=== PATIENT | female | born 1970 | race American Indian/Alaskan Native ===

== ENCOUNTER 2016-09-22 11:16 | Inpatient (IN) | payer OTHER ==
[2016-09-22 12:04] LABS: Hematocrit 39.5 % (30.3-42.9); Hemoglobin 12.9 gm/dl (10.1-14.3); Mean Corpuscular HGB Conc 33 % (30-34); Mean Corpuscular Hemoglobin 27 pg (28-32); Mean Corpuscular Volume 82 fl (79-97); Platelet Count 298 K/mm3 (140-440); Red Cell Distribution Width 15.1 % (13.2-15.2)
[2016-09-22 12:13] LABS: INR 0.95 (0.87-1.13)
[2016-09-22 12:14] LABS: Partial Thromboplastin Time 23.9 Sec. (24.2-36.6)
[2016-09-22 12:15] LABS: Albumin 3.7 g/dL (3.9-5); Albumin/Globulin Ratio 1.2 %; BUN/Creatinine Ratio 18.12; Bilirubin,Total 0.2 mg/dL (0.1-1.2); Chloride 104.9 mmol/L (98-107); Potassium 4.5 mmol/L (3.6-5.0); Total Protein 6.8 g/dL (6.3-8.2)
--- NOTE | 2016-09-22 12:29 | XRay Report ---
ROUTINE CHEST, TWO VIEWS: HISTORY: chest pain. Patchy bilateral lower lobe infiltrates and bronchiectasis appear stable since 08/23/16. Heart size is normal. No pleural effusion or pneumothorax. There is however pneumomediastinum which extends into the lower neck which is a new finding since 08/23/16. IMPRESSION: Pneumomediastinum. Prominent lower lobe markings which appear to be chronic.
--- NOTE | 2016-09-22 12:44 | Emergency Department Report ---
HPI - General Chief Complaint: Dyspnea/Respdistress Time Seen by Provider: 09/22/16 12:21 - HPI HPI: This is a 45-year-old Afro-Syrian female presents to the emergency department from home with complaint of some shortness of breath after being bilateral lung biopsies done last Friday. The patient was recently diagnosed with interstitial lung disease and pulmonary fibrosis secondary to her rheumatoid arthritis. The lung biopsies were done to allegedly rule out malignancy but also look for diagnosis of her worsening lung status. She followed up with Dr. Ng on Friday, 2 days ago, and let Dr. Ng know that she was having some air underneath the skin to the chest and lower portion of the neck. She was told that if the air continues to go up into the neck or any worsening of her symptoms that she should go to the emergency department. The patient says that she is having "rice crispy" crunching to her chest and neck and came in for further evaluation. She also has a past medical history of hypertension and has some renal insufficiency secondary to her rheumatoid arthritis. 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 She denies any tobacco abuse. No recent travel or sick contacts at home. ED Past Medical Hx - Past Medical History Hx Hypertension: Yes Hx Congestive Heart Failure: No Hx Diabetes: No Hx Arthritis: Yes Hx Asthma: Yes Hx COPD: No - Social History Smoking Status: Never Smoker Substance Use Type: None - Medications Home Medications: Home Medications Medication Instructions Recorded Confirmed Last Taken Type Albuterol Sulfate [Albuterol 0.63% 0.63 mg IH BID 08/24/16 08/24/16 08/23/16 History NEBS] Etanercept [Enbrel] 50 mg SQ QWEEK 08/24/16 08/24/16 08/21/16 History Ibuprofen [Motrin 800 MG tab] 1,600 mg PO Q12HR 08/24/16 08/24/16 08/23/16 History Aspirin [Aspirin TAB] 325 mg PO QDAY #30 tablet 08/28/16 Unknown Rx Azithromycin [Zithromax TAB] 500 mg PO QDAY #30 tablet 08/28/16 Unknown Rx Azithromycin [Zithromax TAB] 500 mg PO QDAY #7 tablet 08/28/16 Unknown Rx Budesonide [Pulmicort Respules] 0.5 mg IH Q12HRT #30 nebu 08/28/16 Unknown Rx Cefuroxime Axetil [Ceftin] 500 mg PO Q12H #20 tablet 08/28/16 Unknown Rx Ferrous Sulfate [Feosol 325 MG tab] 325 mg PO QDAY #30 tablet 08/28/16 Unknown Rx Fluticasone/Salmeterol [Advair 2 puff INNOSTRIL BID #30 blst.w.dev 08/28/16 Unknown Rx 250-50 Diskus] Folic Acid 1 mg PO QDAY #30 tablet 08/28/16 Unknown Rx Ibuprofen [Motrin 800 MG tab] 800 mg PO Q8H PRN #20 tablet 08/28/16 Unknown Rx Lisinopril [Zestril TAB] 10 mg PO QDAY #30 tablet 08/28/16 Unknown Rx [place]-3/Dha/Epa/Fish Oil [Fish Oil 2 each PO DAILY #30 capsule. 08/28/16 Unknown Rx [place]-3 EC 1,200 mg] Simvastatin [Zocor TAB] 20 mg PO QHS #30 tablet 08/28/16 Unknown Rx guaiFENesin DM [Robitussin Dm] 10 ml PO Q6H PRN #30 oral.liqd 08/28/16 Unknown Rx ED Review of Systems ROS: Stated complaint: SOB Other details as noted in HPI Comment: All other systems reviewed and negative Constitutional: denies: chills, fever Eyes: denies: eye pain, eye discharge, vision change ENT: denies: ear pain, throat pain Respiratory: cough, shortness of breath Cardiovascular: denies: palpitations, edema Gastrointestinal: denies: abdominal pain, nausea, diarrhea Genitourinary: denies: urgency, dysuria, discharge Musculoskeletal: denies: back pain, joint swelling, arthralgia Skin: denies: rash, lesions Neurological: denies: headache, weakness, paresthesias Physical Exam - Physical Exam Vital Signs: Vital Signs 09/22/16 11:22 Temperature 98.7 F Pulse Rate 116 H Respiratory 22 Rate Blood Pressure 136/78 O2 Sat by Pulse 98 Oximetry Physical Exam: GENERAL: The patient is well-developed well-nourished. HEENT: Normocephalic. Atraumatic. Extraocular motions are intact. Patient has moist mucous membranes. Pupils equal reactive to light bilaterally. NECK: Supple. Trachea is midline. There is crepitus that is palpable to the bilateral anterior and lateral neck. CHEST/LUNGS: Mild wheezing throughout the chest. There is some tachypnea but no accessory muscle use. There is no respiratory distress noted. HEART/CARDIOVASCULAR: Regular. There is mild tachycardia. There is no gallop rub or murmur. ABDOMEN: Abdomen is soft, nontender. Patient has normal bowel sounds. There is no abdominal distention. SKIN: There is palpable crepitus to the inferior half of the anterior and bilateral neck as well as the upper portion of the sternum/chest. NEURO: The patient is awake, alert, and oriented. The patient is cooperative. The patient has no focal neurologic deficits. The patient has normal speech. MUSCULOSKELETAL: There is no tenderness or deformity. There is no limitation range of motion. There is no evidence of acute injury. ED Course Vital Signs 09/22/16 11:22 Temperature 98.7 F Pulse Rate 116 H Respiratory 22 Rate Blood Pressure 136/78 O2 Sat by Pulse 98 Oximetry ED Medical Decision Making - Lab Data Result diagrams: 09/22/16 11:40 09/22/16 11:40 - Radiology Data Radiology results: report reviewed, image reviewed interpreted by me: Chest x-ray shows pneumomediastinum and interstitial lung changes. No obvious pneumonia. No pleural effusion. No pneumothorax seen. CT of the chest without contrast shows no signs of pneumothorax. There is a pneumomediastinum and some interstitial changes to the inferior basilar lungs. - Medical Decision Making 45-year-old female presents with progressively worsening crepitus and subcutaneous emphysema to the chest and neck after having bilateral lung biopsies done last Friday. No pneumothorax and this was reconfirmed on CT of the chest. Spoke with the pulmonary service to recommends admission and 4 L nasal cannula supplemental oxygen. Patient accepted for admission by the hospitalist, Dr Nayg. - Differential Diagnosis pneumomediastinum, pneumothorax, COPD, pneumonia Critical Care Time: No Critical care attestation.: If time is entered above; I have spent that time in minutes in the direct care of this critically ill patient, excluding procedure time. ED Disposition Clinical Impression: Shortness of breath, Pneumomediastinum Subcutaneous emphysema Qualifiers: Encounter type: initial encounter Qualified Code(s): T79.7XXA - Traumatic subcutaneous emphysema, initial encounter Disposition: OP ADMIT IP TO THIS HOSP Is pt being admited?: Yes Condition: Stable Referrals: PRIMARY CARE,MD [Primary Care Provider] - 3-5 Days Time of Disposition: 14:17
--- NOTE | 2016-09-22 13:19 | Cat Scan Report ---
CT CHEST WITHOUT CONTRAST: HISTORY: Shortness of breath. TECHNIQUE: Helical CT with sagittal and coronal reformatted images. FINDINGS: Compared to view chest x-ray performed earlier today. CT confirms extensive pneumomediastinum and subcutaneous emphysema in the lower neck. The etiology of this air is unclear on noncontrast CT. No obvious esophageal or tracheal perforation. Heart size is normal. No pericardial effusion. The mediastinal vessels are grossly normal. There is moderate cylindrical bronchiectasis in both lower lobes with poor aeration of the lower lobes. The upper lung zones are relatively clear. There is no evidence for consolidation, large pleural effusion or pneumothorax. The bony structures are grossly intact. IMPRESSION: Pneumomediastinum. The etiology of this is not clearly evident. Chronic lung changes primarily in the lower lobes.
[2016-09-22 13:20] LABS: Anisocytosis 1+; Basophils % (Manual) 0 % (0.0-1.8); Blastocytes % (Manual) 0 %; Diff Status Complete; Eosinophils % (Manual) 0 % (0.0-4.3); Platelet Estimate Consistent w Auto
[2016-09-22] MEDS ORDERED: TYLENOL PO PRN (16:54)
[2016-09-22] MEDS ORDERED: ZOFRAN IV PRN (16:54)
[2016-09-22] MEDS ORDERED: MILK OF MAGNESIA PO PRN (16:54)
[2016-09-22] MEDS ORDERED: DULCOLAX PR PRN (16:54)
[2016-09-22] MEDS ORDERED: PERCOCET 5/325 PO PRN (16:59)
[2016-09-22] MEDS ORDERED: MORPHINE IV PRN (16:59)
[2016-09-22] MEDS ORDERED: ROBITUSSIN DM PO PRN (17:03)
[2016-09-22] MEDS ORDERED: MOTRIN PO PRN (17:03)
--- NOTE | 2016-09-22 17:09 | History and Physical Report ---
History of Present Illness Date of examination: 09/22/16 Chief complaint: subcutaneous crepitus History of present illness: This is a 45-year-old Afro-Irish female w pmh of HTN, RA, CKD stage 3 due to RA, ILD, Pulmonary fibrosis, Asthma, Oxygen dependent 75% of the time, on 2-3L by ME, presents to the emergency department from home with complaint of ssubcutaneous crepitus after being bilateral lung biopsies done last Friday. The patient was recently diagnosed with interstitial lung disease and pulmonary fibrosis secondary to her rheumatoid arthritis. She followed up with Dr. Ng on Friday, 2 days ago, and let Dr. Ng know that she was having some air underneath the skin to the chest and lower portion of the neck. She was told that if the air continues to go up into the neck or any worsening of her symptoms that she should go to the emergency department. The patient says that she is having "rice crispy" crunching to her chest and neck and came in for further evaluation, she states that it is improved, that it previously was all over her neck and her neck felt full and swollen full or rice krispy palpable air under the skin, the crepitus is now below her clavicles, more on the R than L, and has actually improved. SOB is unchanged from Baseline. . Past History Past Medical History: hypertension, hyperlipidemia, renal failure (stage 3 CKD) , other (asthma, ILD-pulmonary fibrosis, RA) Past Surgical History: , hernia repair, Other (lung biopsy, bunion) Social history: no significant social history Family history: diabetes, hypertension Medications and Allergies Allergies Allergy/AdvReac Type Severity Reaction Status Date / Time No Known Allergies Allergy Unverified 08/23/16 18:51 Home Medications Medication Instructions Recorded Confirmed Last Taken Type Albuterol Sulfate [Albuterol 0.63% 0.63 mg IH BID 08/24/16 09/23/16 2 Days Ago History NEBS] Etanercept [Enbrel] 50 mg SQ QWEEK 08/24/16 08/24/16 08/21/16 History Ibuprofen [Motrin 800 MG tab] 1,600 mg PO Q12HR 08/24/16 08/24/16 08/23/16 History Aspirin [Aspirin TAB] 325 mg PO QDAY #30 tablet 08/28/16 09/23/16 Unknown Rx Azithromycin [Zithromax TAB] 500 mg PO QDAY #30 tablet 08/28/16 Unknown Rx Azithromycin [Zithromax TAB] 500 mg PO QDAY #7 tablet 08/28/16 1 Day Ago Rx Budesonide [Pulmicort Respules] 0.5 mg IH Q12HRT #30 nebu 08/28/16 1 Day Ago Rx Cefuroxime Axetil [Ceftin] 500 mg PO Q12H #20 tablet 08/28/16 Unknown Rx Ferrous Sulfate [Feosol 325 MG tab] 325 mg PO QDAY #30 tablet 08/28/16 09/23/16 1 Day Ago Rx Fluticasone/Salmeterol [Advair 2 puff INNOSTRIL BID #30 blst.w.dev 08/28/16 Unknown Rx 250-50 Diskus] Folic Acid 1 mg PO QDAY #30 tablet 08/28/16 09/23/16 Unknown Rx Ibuprofen [Motrin 800 MG tab] 800 mg PO Q8H PRN #20 tablet 08/28/16 09/23/16 1 Day Ago Rx Lisinopril [Zestril TAB] 10 mg PO QDAY #30 tablet 08/28/16 09/23/16 1 Day Ago Rx [place]-3/Dha/Epa/Fish Oil [Fish Oil 2 each PO DAILY #30 capsule. 08/28/16 Unknown Rx [place]-3 EC 1,200 mg] Simvastatin [Zocor TAB] 20 mg PO QHS #30 tablet 08/28/16 09/23/16 1 Day Ago Rx guaiFENesin DM [Robitussin Dm] 10 ml PO Q6H PRN #30 oral.liqd 08/28/16 Unknown Rx Omeprazole 20 mg PO 09/23/16 1 Day Ago History predniSONE [Deltasone] 20 mg PO BID 09/23/16 1 Day Ago History Active Meds: Active Medications Acetaminophen (Tylenol) 650 mg PO Q4H PRN PRN Reason: Pain MILD(1-3)/Fever >100.5/PATEL Bisacodyl (Dulcolax) 10 mg VT QDAY PRN PRN Reason: Constipation unrelieved by MOM Enoxaparin Sodium (Lovenox) 40 mg SUB-Q QDAY SANDEEP Magnesium Hydroxide (Milk Of Magnesia) 30 ml PO Q4H PRN PRN Reason: Constipation Morphine Sulfate (Morphine) 2 mg IV Q4H PRN PRN Reason: Pain, Moderate (4-6) Ondansetron HCl (Zofran) 4 mg IV Q8H PRN PRN Reason: N/V unrelieved by Reglan Oxycodone/Acetaminophen (Percocet 5/325) 1 tab PO Q6H PRN PRN Reason: Pain, Moderate (4-6) Review of Systems All systems: negative (as stated in HPI, 10 system review is otherwise negative) Exam - Constitutional Vitals: Temp Pulse Resp BP Pulse Ox 98.7 F 79 16 106/78 100 09/22/16 11:22 09/22/16 13:30 09/22/16 13:50 09/22/16 13:30 09/22/16 13:30 General appearance: Present: no acute distress, well-nourished - EENT Eyes: Present: PERRL ENT: hearing intact, clear oral mucosa - Neck Neck: Present: supple, normal ROM - Respiratory Respiratory effort: normal Respiratory: bilateral: diminished - Cardiovascular Heart Sounds: Present: S1 & S2. Absent: rub, click - Extremities Extremities: pulses symmetrical, No edema Peripheral Pulses: within normal limits - Abdominal General gastrointestinal: Present: soft, non-tender, non-distended, normal bowel sounds Female genitourinary: Present: normal - Integumentary Integumentary: Present: clear, warm, dry (subcutaneous crepitus under the clavicle) - Musculoskeletal Musculoskeletal: gait normal, strength equal bilaterally - Psychiatric Psychiatric: appropriate mood/affect, intact judgment & insight - Neurologic Neurologic: CNII-XII intact, moves all extremities Results - Labs CBC & Chem 7: 09/22/16 11:40 09/22/16 11:40 Labs: Laboratory Last Values WBC 16.0 K/mm3 (4.5-11.0) H 09/22/16 11:40 RBC 4.80 M/mm3 (3.65-5.03) 09/22/16 11:40 Hgb 12.9 gm/dl (10.1-14.3) 09/22/16 11:40 Hct 39.5 % (30.3-42.9) 09/22/16 11:40 MCV 82 fl (79-97) 09/22/16 11:40 MCH 27 pg (28-32) L 09/22/16 11:40 MCHC 33 % (30-34) 09/22/16 11:40 RDW 15.1 % (13.2-15.2) 09/22/16 11:40 Plt Count 298 K/mm3 (140-440) 09/22/16 11:40 Add Manual Diff Complete 09/22/16 11:40 Total Counted 100 09/22/16 11:40 Seg Neuts % (Manual) 91.0 % (40.0-70.0) H 09/22/16 11:40 Band Neutrophils % 0 % 09/22/16 11:40 Lymphocytes % (Manual) 7.0 % (13.4-35.0) L 09/22/16 11:40 Reactive Lymphs % (Man) 0 % 09/22/16 11:40 Monocytes % (Manual) 2.0 % (0.0-7.3) 09/22/16 11:40 Eosinophils % (Manual) 0 % (0.0-4.3) 09/22/16 11:40 Basophils % (Manual) 0 % (0.0-1.8) 09/22/16 11:40 Metamyelocytes % 0 % 09/22/16 11:40 Myelocytes % 0 % 09/22/16 11:40 Promyelocytes % 0 % 09/22/16 11:40 Blast Cells % 0 % 09/22/16 11:40 Nucleated RBC % Not Reportable 09/22/16 11:40 Seg Neutrophils # Man 14.6 K/mm3 (1.8-7.7) H 09/22/16 11:40 Band Neutrophils # 0.0 K/mm3 09/22/16 11:40 Lymphocytes # (Manual) 1.1 K/mm3 (1.2-5.4) L 09/22/16 11:40 Abs React Lymphs (Man) 0.0 K/mm3 09/22/16 11:40 Monocytes # (Manual) 0.3 K/mm3 (0.0-0.8) 09/22/16 11:40 Eosinophils # (Manual) 0.0 K/mm3 (0.0-0.4) 09/22/16 11:40 Basophils # (Manual) 0.0 K/mm3 (0.0-0.1) 09/22/16 11:40 Metamyelocytes # 0.0 K/mm3 09/22/16 11:40 Myelocytes # 0.0 K/mm3 09/22/16 11:40 Promyelocytes # 0.0 K/mm3 09/22/16 11:40 Blast Cells # 0.0 K/mm3 09/22/16 11:40 WBC Morphology Not Reportable 09/22/16 11:40 Hypersegmented Neuts Not Reportable 09/22/16 11:40 Hyposegmented Neuts Not Reportable 09/22/16 11:40 Hypogranular Neuts Not Reportable 09/22/16 11:40 Smudge Cells Not Reportable 09/22/16 11:40 Toxic Granulation Not Reportable 09/22/16 11:40 Toxic Vacuolation Not Reportable 09/22/16 11:40 Dohle Bodies Not Reportable 09/22/16 11:40 Pelger-Huet Anomaly Not Reportable 09/22/16 11:40 Vivek Rods Not Reportable 09/22/16 11:40 Platelet Estimate Consistent w auto 09/22/16 11:40 Clumped Platelets Not Reportable 09/22/16 11:40 Plt Clumps, EDTA Not Reportable 09/22/16 11:40 Large Platelets Not Reportable 09/22/16 11:40 Giant Platelets Not Reportable 09/22/16 11:40 Platelet Satelliting Not Reportable 09/22/16 11:40 Plt Morphology Comment Not Reportable 09/22/16 11:40 RBC Morphology Not Reportable 09/22/16 11:40 Dimorphic RBCs Not Reportable 09/22/16 11:40 Polychromasia Not Reportable 09/22/16 11:40 Hypochromasia Not Reportable 09/22/16 11:40 Poikilocytosis Not Reportable 09/22/16 11:40 Anisocytosis 1+ 09/22/16 11:40 Microcytosis Not Reportable 09/22/16 11:40 Macrocytosis Not Reportable 09/22/16 11:40 Spherocytes Not Reportable 09/22/16 11:40 Pappenheimer Bodies Not Reportable 09/22/16 11:40 Sickle Cells Not Reportable 09/22/16 11:40 Target Cells Not Reportable 09/22/16 11:40 Tear Drop Cells Not Reportable 09/22/16 11:40 Ovalocytes Not Reportable 09/22/16 11:40 Helmet Cells Not Reportable 09/22/16 11:40 [place] Bodies Not Reportable 09/22/16 11:40 [place] Rings Not Reportable 09/22/16 11:40 Enedelia Cells Not Reportable 09/22/16 11:40 Bite Cells Not Reportable 09/22/16 11:40 Crenated Cell Not Reportable 09/22/16 11:40 Elliptocytes Not Reportable 09/22/16 11:40 Acanthocytes (Spur) Not Reportable 09/22/16 11:40 Rouleaux Not Reportable 09/22/16 11:40 Hemoglobin C Crystals Not Reportable 09/22/16 11:40 Schistocytes Not Reportable 09/22/16 11:40 Malaria parasites Not Reportable 09/22/16 11:40 Jeremy Bodies Not Reportable 09/22/16 11:40 Hem Pathologist Commnt No 09/22/16 11:40 PT 12.6 Sec. (12.2-14.9) 09/22/16 11:40 INR 0.95 (0.87-1.13) 09/22/16 11:40 APTT 23.9 Sec. (24.2-36.6) L 09/22/16 11:40 Sodium 141 mmol/L (137-145) 09/22/16 11:40 Potassium 4.5 mmol/L (3.6-5.0) 09/22/16 11:40 Chloride 104.9 mmol/L (98-107) 09/22/16 11:40 Carbon Dioxide 19 mmol/L (22-30) L 09/22/16 11:40 Anion Gap 22 mmol/L 09/22/16 11:40 BUN 29 mg/dL (7-17) H 09/22/16 11:40 Creatinine 1.6 mg/dL (0.7-1.2) H 09/22/16 11:40 Estimated GFR 42 ml/min 09/22/16 11:40 BUN/Creatinine Ratio 18.12 % 09/22/16 11:40 Glucose 105 mg/dL (65-100) H 09/22/16 11:40 Calcium 9.0 mg/dL (8.4-10.2) 09/22/16 11:40 Total Bilirubin 0.20 mg/dL (0.1-1.2) 09/22/16 11:40 AST 83 units/L (5-40) H 09/22/16 11:40 ALT 130 units/L (7-56) H 09/22/16 11:40 Alkaline Phosphatase 44 units/L (35-129) 09/22/16 11:40 Total Protein 6.8 g/dL (6.3-8.2) 09/22/16 11:40 Albumin 3.7 g/dL (3.9-5) L 09/22/16 11:40 Albumin/Globulin Ratio 1.2 % 09/22/16 11:40 - Imaging and Cardiology Chest x-ray: image reviewed ( shows pneumomediastinum and interstitial lung changes. No obvious pneumonia. No pleural effusion. No pneumothorax seen.) CT scan - chest: image reviewed ( no signs of pneumothorax. There is a pneumomediastinum and some interstitial changes to the inferior basilar lungs.) Assessment and Plan Assessment and plan: 45-year-old past medical history of asthma, pulmonary fibrosis, interstitial lung disease who presents with subcutaneous crepitus. 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 Ng, problems as worsened and is now up to her neck, prompting her to come into the ER for evaluation. she has chronic GARCIA which is unchanged Pneumomediastinum this is an expected outcome, complication of lung biopsy Continue oxygen supplementation 4 L nasal cannula, do not wean, pulmonology consulted Chronic hypoxic respiratory failure continue oxygen supplementation as stated above Asthma Continue chronic medications, hold Advair on hospital and will treat with Jennifer and Pulcordellort Interstitial lung disease/pulmonary fibrosis Continue her medications Stage III chronic kidney disease Creatinine is at her baseline, avoid nephrotoxins Hypertension Continue lisinopril Hyperlipidemia Continue Zocor. DVT prophylaxis Enoxaparin subcutaneous , VTE prophylaxis?: Chemical Plan of care discussed with patient/family: Yes
[2016-09-22] MEDS ORDERED: LOVENOX SUB-Q SCH (18:00)
[2016-09-22] MEDS ORDERED: LOVENOX SUB-Q ONE (18:21)
[2016-09-22] MEDS: BROVANA NEBU IH SCH (19:25)
[2016-09-22] MEDS: PULMICORT IH SCH (19:25)
[2016-09-22] MEDS ORDERED: PROVENTIL IH SCH (20:00)
[2016-09-22] MEDS ORDERED: ZOCOR PO SCH (22:00)
--- NOTE | 2016-09-23 07:26 | Progress Note ---
<NITA GARZA - Last Filed: 09/23/16 14:51> Assessment and Plan Assessment and plan: Pneumomediastinum CTA and chest x-ray shows Pneumomediastinum S/P of lung biopsy, no treatment needs at present time the body will gradually absorb the air. Continue oxygen supplementation, patient on 4 L nasal, do not wean Followed by Pulmonology Asthma Stable at present time Continue Brovana and Pulmicort and hold Advair. Oxygen supplement Supportive care Interstitial lung disease/pulmonary fibrosis Continue on home medications Stage III chronic kidney disease BUN/creatinine at her baseline Avoid nephrotoxins and closely morning BMP and electrolytes Elevated liver enzyme Chronic liver disease and advised to follow up with her primary provider Leukocytes Improved Hypertension Continue on home on hypersensitive pills. Hyperlipidemia Continue on home on antilipid medicine Discussed with the patient the importance of low-fat diet, physical exercise and reducing intake of high-fat foods to improve cardiovascular diseases. Patient on agreed upon course of action. DVT prophylaxis Lovenox History Interval history: Patient verbalized feeling better. She denies shortness of breath or chest pain. Patient currently on 4LNC was oxygen saturation greater than 95%, no acute distress noted. Hospitalist Physical - Constitutional Vitals: Temp Pulse Resp BP Pulse Ox 98.0 F 88 18 112/61 97 09/23/16 04:00 09/23/16 04:00 09/23/16 04:00 09/23/16 04:00 09/23/16 04:00 General appearance: Present: no acute distress, well-nourished - EENT Eyes: Present: PERRL ENT: hearing intact - Neck Neck: Present: supple, normal ROM - Respiratory Respiratory effort: other Respiratory: bilateral: diminished - Cardiovascular Heart rate: 88 Rhythm: regular Heart Sounds: Present: S1 & S2 - Extremities Extremities: no ischemia Peripheral Pulses: within normal limits - Abdominal General gastrointestinal: soft, non-tender - Integumentary Integumentary: Present: clear, warm, dry - Psychiatric Psychiatric: appropriate mood/affect - Neurologic Neurologic: CNII-XII intact - Allied Health Allied health notes reviewed: nursing Results - Labs CBC & Chem 7: 09/23/16 07:09 09/23/16 07:09 Labs: Laboratory Last Values WBC 16.0 K/mm3 (4.5-11.0) H 09/22/16 11:40 RBC 4.80 M/mm3 (3.65-5.03) 09/22/16 11:40 Hgb 12.9 gm/dl (10.1-14.3) 09/22/16 11:40 Hct 39.5 % (30.3-42.9) 09/22/16 11:40 MCV 82 fl (79-97) 09/22/16 11:40 MCH 27 pg (28-32) L 09/22/16 11:40 MCHC 33 % (30-34) 09/22/16 11:40 RDW 15.1 % (13.2-15.2) 09/22/16 11:40 Plt Count 298 K/mm3 (140-440) 09/22/16 11:40 Add Manual Diff Complete 09/22/16 11:40 Total Counted 100 09/22/16 11:40 Seg Neuts % (Manual) 91.0 % (40.0-70.0) H 09/22/16 11:40 Band Neutrophils % 0 % 09/22/16 11:40 Lymphocytes % (Manual) 7.0 % (13.4-35.0) L 09/22/16 11:40 Reactive Lymphs % (Man) 0 % 09/22/16 11:40 Monocytes % (Manual) 2.0 % (0.0-7.3) 09/22/16 11:40 Eosinophils % (Manual) 0 % (0.0-4.3) 09/22/16 11:40 Basophils % (Manual) 0 % (0.0-1.8) 09/22/16 11:40 Metamyelocytes % 0 % 09/22/16 11:40 Myelocytes % 0 % 09/22/16 11:40 Promyelocytes % 0 % 09/22/16 11:40 Blast Cells % 0 % 09/22/16 11:40 Nucleated RBC % Not Reportable 09/22/16 11:40 Seg Neutrophils # Man 14.6 K/mm3 (1.8-7.7) H 09/22/16 11:40 Band Neutrophils # 0.0 K/mm3 09/22/16 11:40 Lymphocytes # (Manual) 1.1 K/mm3 (1.2-5.4) L 09/22/16 11:40 Abs React Lymphs (Man) 0.0 K/mm3 09/22/16 11:40 Monocytes # (Manual) 0.3 K/mm3 (0.0-0.8) 09/22/16 11:40 Eosinophils # (Manual) 0.0 K/mm3 (0.0-0.4) 09/22/16 11:40 Basophils # (Manual) 0.0 K/mm3 (0.0-0.1) 09/22/16 11:40 Metamyelocytes # 0.0 K/mm3 09/22/16 11:40 Myelocytes # 0.0 K/mm3 09/22/16 11:40 Promyelocytes # 0.0 K/mm3 09/22/16 11:40 Blast Cells # 0.0 K/mm3 09/22/16 11:40 WBC Morphology Not Reportable 09/22/16 11:40 Hypersegmented Neuts Not Reportable 09/22/16 11:40 Hyposegmented Neuts Not Reportable 09/22/16 11:40 Hypogranular Neuts Not Reportable 09/22/16 11:40 Smudge Cells Not Reportable 09/22/16 11:40 Toxic Granulation Not Reportable 09/22/16 11:40 Toxic Vacuolation Not Reportable 09/22/16 11:40 Dohle Bodies Not Reportable 09/22/16 11:40 Pelger-Huet Anomaly Not Reportable 09/22/16 11:40 Vivek Rods Not Reportable 09/22/16 11:40 Platelet Estimate Consistent w auto 09/22/16 11:40 Clumped Platelets Not Reportable 09/22/16 11:40 Plt Clumps, EDTA Not Reportable 09/22/16 11:40 Large Platelets Not Reportable 09/22/16 11:40 Giant Platelets Not Reportable 09/22/16 11:40 Platelet Satelliting Not Reportable 09/22/16 11:40 Plt Morphology Comment Not Reportable 09/22/16 11:40 RBC Morphology Not Reportable 09/22/16 11:40 Dimorphic RBCs Not Reportable 09/22/16 11:40 Polychromasia Not Reportable 09/22/16 11:40 Hypochromasia Not Reportable 09/22/16 11:40 Poikilocytosis Not Reportable 09/22/16 11:40 Anisocytosis 1+ 09/22/16 11:40 Microcytosis Not Reportable 09/22/16 11:40 Macrocytosis Not Reportable 09/22/16 11:40 Spherocytes Not Reportable 09/22/16 11:40 Pappenheimer Bodies Not Reportable 09/22/16 11:40 Sickle Cells Not Reportable 09/22/16 11:40 Target Cells Not Reportable 09/22/16 11:40 Tear Drop Cells Not Reportable 09/22/16 11:40 Ovalocytes Not Reportable 09/22/16 11:40 Helmet Cells Not Reportable 09/22/16 11:40 H[place] Bodies Not Reportable 09/22/16 11:40 [place] Rings Not Reportable 09/22/16 11:40 [place] Cells Not Reportable 09/22/16 11:40 Bite Cells Not Reportable 09/22/16 11:40 Crenated Cell Not Reportable 09/22/16 11:40 Elliptocytes Not Reportable 09/22/16 11:40 Acanthocytes (Spur) Not Reportable 09/22/16 11:40 Rouleaux Not Reportable 09/22/16 11:40 Hemoglobin C Crystals Not Reportable 09/22/16 11:40 Schistocytes Not Reportable 09/22/16 11:40 Malaria parasites Not Reportable 09/22/16 11:40 Jeremy Bodies Not Reportable 09/22/16 11:40 Hem Pathologist Commnt No 09/22/16 11:40 PT 12.6 Sec. (12.2-14.9) 09/22/16 11:40 INR 0.95 (0.87-1.13) 09/22/16 11:40 APTT 23.9 Sec. (24.2-36.6) L 09/22/16 11:40 Sodium 141 mmol/L (137-145) 09/22/16 11:40 Potassium 4.5 mmol/L (3.6-5.0) 09/22/16 11:40 Chloride 104.9 mmol/L (98-107) 09/22/16 11:40 Carbon Dioxide 19 mmol/L (22-30) L 09/22/16 11:40 Anion Gap 22 mmol/L 09/22/16 11:40 BUN 29 mg/dL (7-17) H 09/22/16 11:40 Creatinine 1.6 mg/dL (0.7-1.2) H 09/22/16 11:40 Estimated GFR 42 ml/min 09/22/16 11:40 BUN/Creatinine Ratio 18.12 % 09/22/16 11:40 Glucose 105 mg/dL (65-100) H 09/22/16 11:40 Calcium 9.0 mg/dL (8.4-10.2) 09/22/16 11:40 Total Bilirubin 0.20 mg/dL (0.1-1.2) 09/22/16 11:40 AST 83 units/L (5-40) H 09/22/16 11:40 ALT 130 units/L (7-56) H 09/22/16 11:40 Alkaline Phosphatase 44 units/L (35-129) 09/22/16 11:40 Total Protein 6.8 g/dL (6.3-8.2) 09/22/16 11:40 Albumin 3.7 g/dL (3.9-5) L 09/22/16 11:40 Albumin/Globulin Ratio 1.2 % 09/22/16 11:40 - Imaging and Cardiology Abdominal x-ray: image reviewed (Pneumomediastinum, prominent lower lobe markings which appear to be chronic) CT scan - abdomen: image reviewed (Pneumomediastinum) <MADDY ZABALA - Last Filed: 09/23/16 16:13> Assessment and Plan Assessment and plan: I saw and evaluated the patient. I agree with the findings and the plan of care as documented in the Nurse Practitioner's~note, with the following corrections and additions. Patient on exam has crepitations around the base of the neck and chest wall area. But in no acute distress and not requiring higher level of oxygen baseline. She also reports improvement in symptomatology. He I believe the patient subsequently Discharged if okay with pulmonary follow-up with her pulmonary physician outpatient. LFTs were elevated but this has trended down and improved. The patient has no fever. Hospitalist Physical - Constitutional Vitals: Temp Pulse Resp BP Pulse Ox 97.5 F L 81 16 101/61 99 09/23/16 07:00 09/23/16 08:58 09/23/16 08:58 09/23/16 10:55 09/23/16 08:47 Results - Labs CBC & Chem 7: 09/23/16 07:09 09/23/16 07:09 Labs: Laboratory Last Values WBC 11.2 K/mm3 (4.5-11.0) H 09/23/16 07:09 RBC 4.61 M/mm3 (3.65-5.03) 09/23/16 07:09 Hgb 12.4 gm/dl (10.1-14.3) 09/23/16 07:09 Hct 37.7 % (30.3-42.9) 09/23/16 07:09 MCV 82 fl (79-97) 09/23/16 07:09 MCH 27 pg (28-32) L 09/23/16 07:09 MCHC 33 % (30-34) 09/23/16 07:09 RDW 15.1 % (13.2-15.2) 09/23/16 07:09 Plt Count 276 K/mm3 (140-440) 09/23/16 07:09 Lymph % (Auto) 9.2 % (13.4-35.0) L 09/23/16 07:09 Graves % (Auto) 1.5 % (0.0-7.3) 09/23/16 07:09 Eos % (Auto) 0.0 % (0.0-4.3) 09/23/16 07:09 Baso % (Auto) 0.3 % (0.0-1.8) 09/23/16 07:09 Lymph # 1.0 K/mm3 (1.2-5.4) L 09/23/16 07:09 Graves # 0.2 K/mm3 (0.0-0.8) 09/23/16 07:09 Eos # 0.0 K/mm3 (0.0-0.4) 09/23/16 07:09 Baso # 0.0 K/mm3 (0.0-0.1) 09/23/16 07:09 Add Manual Diff Complete 09/22/16 11:40 Total Counted 100 09/22/16 11:40 Seg Neutrophils % 89.0 % (40.0-70.0) H 09/23/16 07:09 Seg Neuts % (Manual) 91.0 % (40.0-70.0) H 09/22/16 11:40 Band Neutrophils % 0 % 09/22/16 11:40 Lymphocytes % (Manual) 7.0 % (13.4-35.0) L 09/22/16 11:40 Reactive Lymphs % (Man) 0 % 09/22/16 11:40 Monocytes % (Manual) 2.0 % (0.0-7.3) 09/22/16 11:40 Eosinophils % (Manual) 0 % (0.0-4.3) 09/22/16 11:40 Basophils % (Manual) 0 % (0.0-1.8) 09/22/16 11:40 Metamyelocytes % 0 % 09/22/16 11:40 Myelocytes % 0 % 09/22/16 11:40 Promyelocytes % 0 % 09/22/16 11:40 Blast Cells % 0 % 09/22/16 11:40 Nucleated RBC % Not Reportable 09/22/16 11:40 Seg Neutrophils # 10.0 K/mm3 (1.8-7.7) H 09/23/16 07:09 Seg Neutrophils # Man 14.6 K/mm3 (1.8-7.7) H 09/22/16 11:40 Band Neutrophils # 0.0 K/mm3 09/22/16 11:40 Lymphocytes # (Manual) 1.1 K/mm3 (1.2-5.4) L 09/22/16 11:40 Abs React Lymphs (Man) 0.0 K/mm3 09/22/16 11:40 Monocytes # (Manual) 0.3 K/mm3 (0.0-0.8) 09/22/16 11:40 Eosinophils # (Manual) 0.0 K/mm3 (0.0-0.4) 09/22/16 11:40 Basophils # (Manual) 0.0 K/mm3 (0.0-0.1) 09/22/16 11:40 Metamyelocytes # 0.0 K/mm3 09/22/16 11:40 Myelocytes # 0.0 K/mm3 09/22/16 11:40 Promyelocytes # 0.0 K/mm3 09/22/16 11:40 Blast Cells # 0.0 K/mm3 09/22/16 11:40 WBC Morphology Not Reportable 09/22/16 11:40 Hypersegmented Neuts Not Reportable 09/22/16 11:40 Hyposegmented Neuts Not Reportable 09/22/16 11:40 Hypogranular Neuts Not Reportable 09/22/16 11:40 Smudge Cells Not Reportable 09/22/16 11:40 Toxic Granulation Not Reportable 09/22/16 11:40 Toxic Vacuolation Not Reportable 09/22/16 11:40 Dohle Bodies Not Reportable 09/22/16 11:40 Pelger-Huet Anomaly Not Reportable 09/22/16 11:40 Vivek Rods Not Reportable 09/22/16 11:40 Platelet Estimate Consistent w auto 09/22/16 11:40 Clumped Platelets Not Reportable 09/22/16 11:40 Plt Clumps, EDTA Not Reportable 09/22/16 11:40 Large Platelets Not Reportable 09/22/16 11:40 Giant Platelets Not Reportable 09/22/16 11:40 Platelet Satelliting Not Reportable 09/22/16 11:40 Plt Morphology Comment Not Reportable 09/22/16 11:40 RBC Morphology Not Reportable 09/22/16 11:40 Dimorphic RBCs Not Reportable 09/22/16 11:40 Polychromasia Not Reportable 09/22/16 11:40 Hypochromasia Not Reportable 09/22/16 11:40 Poikilocytosis Not Reportable 09/22/16 11:40 Anisocytosis 1+ 09/22/16 11:40 Microcytosis Not Reportable 09/22/16 11:40 Macrocytosis Not Reportable 09/22/16 11:40 Spherocytes Not Reportable 09/22/16 11:40 Pappenheimer Bodies Not Reportable 09/22/16 11:40 Sickle Cells Not Reportable 09/22/16 11:40 Target Cells Not Reportable 09/22/16 11:40 Tear Drop Cells Not Reportable 09/22/16 11:40 Ovalocytes Not Reportable 09/22/16 11:40 Helmet Cells Not Reportable 09/22/16 11:40 [place] Bodies Not Reportable 09/22/16 11:40 [place] Rings Not Reportable 09/22/16 11:40 [place] Cells Not Reportable 09/22/16 11:40 Bite Cells Not Reportable 09/22/16 11:40 Crenated Cell Not Reportable 09/22/16 11:40 Elliptocytes Not Reportable 09/22/16 11:40 Acanthocytes (Spur) Not Reportable 09/22/16 11:40 Rouleaux Not Reportable 09/22/16 11:40 Hemoglobin C Crystals Not Reportable 09/22/16 11:40 Schistocytes Not Reportable 09/22/16 11:40 Malaria parasites Not Reportable 09/22/16 11:40 Jeremy Bodies Not Reportable 09/22/16 11:40 Hem Pathologist Commnt No 09/22/16 11:40 PT 12.6 Sec. (12.2-14.9) 09/22/16 11:40 INR 0.95 (0.87-1.13) 09/22/16 11:40 APTT 23.9 Sec. (24.2-36.6) L 09/22/16 11:40 Sodium 141 mmol/L (137-145) 09/23/16 07:09 Potassium 5.3 mmol/L (3.6-5.0) H 09/23/16 07:09 Chloride 106.1 mmol/L (98-107) 09/23/16 07:09 Carbon Dioxide 20 mmol/L (22-30) L 09/23/16 07:09 Anion Gap 20 mmol/L 09/23/16 07:09 BUN 28 mg/dL (7-17) H 09/23/16 07:09 Creatinine 1.4 mg/dL (0.7-1.2) H 09/23/16 07:09 Estimated GFR 49 ml/min 09/23/16 07:09 BUN/Creatinine Ratio 20.00 % 09/23/16 07:09 Glucose 133 mg/dL (65-100) H 09/23/16 07:09 Calcium 8.6 mg/dL (8.4-10.2) 09/23/16 07:09 Total Bilirubin 0.20 mg/dL (0.1-1.2) 09/22/16 11:40 AST 83 units/L (5-40) H 09/22/16 11:40 ALT 130 units/L (7-56) H 09/22/16 11:40 Alkaline Phosphatase 44 units/L (35-129) 09/22/16 11:40 Total Protein 6.8 g/dL (6.3-8.2) 09/22/16 11:40 Albumin 3.7 g/dL (3.9-5) L 09/22/16 11:40 Albumin/Globulin Ratio 1.2 % 09/22/16 11:40
--- NOTE | 2016-09-23 07:50 | Admit Criteria Form ---
Admission Criteria Documentation: PNEUMOTHORAX Clinical Indications for Admission to Inpatient Care (Place 'X' for any and all applicable criteria): Admission to inpatient status for two mid-nights or more is indicated for ANY ONE of the following (1),(2): [ ]I. Pneumothorax caused by associated lung disease (eg, COPD, cystic fibrosis, lung cancer, AIDS)(6): [ ]II. Recurrent episode of pneumothorax9 [ ]III. Traumatic pneumothorax (10)(11)(12) [ ]IV. Tension pneumothorax [ ]V. Hypotension [ ]. Respiratory distress [ ]VII. Pneumothorax exacerbating significant comorbidity (eg, heart failure) [X]VIII. Inpatient admission required rather than observation care (see Pneumothorax: Observation Care guideline as appropriate) because of 1 or more of the following (13)(14) [X]1) Symptomatic pneumothorax (eg, dyspnea, Tachypnea ) insufficiently responsive to outpatient or observation care treatment (eg, needle aspiration) [ ]2) Infection identified (eg, pneumonia) that requires inpatient management [ ]3) Severe pain requiring acute inpatient management [ ]4) Supplemental oxygen or respiratory treatments for over 24 hours that are performable only in acute inpatient setting Other significant finding or clinical cond judged not to be within the scope of observation care [ ]5) Chest tube placement with active evacuation (eg, suction, drainage) [ ]6) Epidural analgesia [X]7) Other condition, treatment, or monitoring requiring inpatient admission Extended stay beyond goal length of stay may be needed for (24) [ ]a) Comorbid pneumonia, or acute exacerbation of COPD [ ]b) Acute respiratory failure (eg, pulmonary collapse) [ ]c) Pneumothorax associated with trauma (eg, multiple fractured ribs) [ ]d) Persistent air leak(2)(5)(8)(30) [ ]e) Tension pneumothorax [ ]f) Pulmonary edema The original [employer] content created by [employer] has been revised. The portions of the content which have been revised are identified through the use of italic text or in bold, and [employer] has neither reviewed nor approved the modified material. All other unmodified content is copyright [employer]. Please see references footnoted in the original [employer] edition 2017 Admission Criteria Met: Yes
[2016-09-23 08:00] LABS: Basophils % (Auto) 0.3 % (0.0-1.8); Hematocrit 37.7 % (30.3-42.9); Hemoglobin 12.4 gm/dl (10.1-14.3); Mean Corpuscular HGB Conc 33 % (30-34); Mean Corpuscular Hemoglobin 27 pg (28-32); Mean Corpuscular Volume 82 fl (79-97); Platelet Count 276 K/mm3 (140-440); Red Blood Count 4.61 M/mm3 (3.65-5.03); Red Cell Distribution Width 15.1 % (13.2-15.2); White Blood Count 11.2 K/mm3 (4.5-11.0)
[2016-09-23 08:24] LABS: Calcium 8.6 mg/dL (8.4-10.2); Chloride 106.1 mmol/L (98-107); Potassium 5.3 mmol/L (3.6-5.0)
[2016-09-23] MEDS: BROVANA NEBU IH SCH (08:48)
[2016-09-23] MEDS: PULMICORT IH SCH (08:48)
[2016-09-23] MEDS ORDERED: ASPIRIN PO SCH (10:00)
[2016-09-23] MEDS ORDERED: FOLVITE PO SCH (10:00)
[2016-09-23] MEDS ORDERED: FEOSOL PO SCH (10:00)
[2016-09-23] MEDS: FISH OIL PO SCH ×2 (10:05→10:06)
[2016-09-23] MEDS: ZESTRIL PO SCH ×2 (10:52→10:55)
[2016-09-23] MEDS ORDERED: PNEUMOVAX 23 IM ONE (12:00)
[2016-09-23 17:45] VITALS: BP 121/69
--- NOTE | 2016-09-23 18:40 | Consultation ---
History of Present Illness Consult date: 09/23/16 Requesting physician: MADDY ZABALA Reason for consult: other (Pneumomediastinum) History of present illness: Pt. here for above. Had bronch 09/17/16 w/ TBBx per Dr. Ng. Post-bronch CXR showed small subQ air w/o PTX. Developed worsening subQ crepitus so told to come to ED. Symptoms actually much improved past 24 hours. Denies changes in baseline SOB. Denies fevers, chills, chest pain, cough, sputum. On O2 at home. Past History Past Medical History: hypertension, hyperlipidemia, renal failure (stage 3 CKD) , other (asthma, ILD-pulmonary fibrosis, RA) Past Surgical History: , hernia repair, Other (lung biopsy, bunion) Social history: no significant social history, full code. denies: smoking, alcohol abuse, prescription drug abuse, IV drug use Family history: diabetes, hypertension Medications and Allergies Allergies Allergy/AdvReac Type Severity Reaction Status Date / Time No Known Allergies Allergy Unverified 08/23/16 18:51 Home Medications Medication Instructions Recorded Confirmed Last Taken Type Albuterol Sulfate [Albuterol 0.63% 0.63 mg IH BID 08/24/16 09/23/16 2 Days Ago History NEBS] Etanercept [Enbrel] 50 mg SQ QWEEK 08/24/16 08/24/16 08/21/16 History Ibuprofen [Motrin 800 MG tab] 1,600 mg PO Q8HR PRN 08/24/16 09/23/16 08/23/16 History Aspirin [Aspirin TAB] 325 mg PO QDAY #30 tablet 08/28/16 09/23/16 Unknown Rx Azithromycin [Zithromax TAB] 500 mg PO QDAY #30 tablet 08/28/16 Unknown Rx Azithromycin [Zithromax TAB] 500 mg PO QDAY #7 tablet 08/28/16 09/23/16 1 Day Ago Rx Budesonide [Pulmicort Respules] 0.5 mg IH Q12HRT #30 nebu 08/28/16 09/23/16 1 Day Ago Rx Cefuroxime Axetil [Ceftin] 500 mg PO Q12H #20 tablet 08/28/16 Unknown Rx Ferrous Sulfate [Feosol 325 MG tab] 325 mg PO QDAY #30 tablet 08/28/16 09/23/16 1 Day Ago Rx Fluticasone/Salmeterol [Advair 2 puff INNOSTRIL BID #30 blst.w.dev 08/28/16 Unknown Rx 250-50 Diskus] Folic Acid 1 mg PO QDAY #30 tablet 08/28/16 09/23/16 Unknown Rx Ibuprofen [Motrin 800 MG tab] 800 mg PO Q8H PRN #20 tablet 08/28/16 09/23/16 1 Day Ago Rx Lisinopril [Zestril TAB] 10 mg PO QDAY #30 tablet 08/28/16 09/23/16 1 Day Ago Rx Foley-3/Dha/Epa/Fish Oil [Fish Oil 2 each PO DAILY #30 capsule. 08/28/16 Unknown Rx Foley-3 EC 1,200 mg] Simvastatin [Zocor TAB] 20 mg PO QHS #30 tablet 08/28/16 09/23/16 1 Day Ago Rx guaiFENesin DM [Robitussin Dm] 10 ml PO Q6H PRN #30 oral.liqd 08/28/16 09/23/16 Unknown Rx Omeprazole 20 mg PO 09/23/16 1 Day Ago History predniSONE [Deltasone] 20 mg PO BID 09/23/16 09/23/16 1 Day Ago History Review of Systems All systems: negative Physical Examination Vital signs: Vital Signs Temp Pulse Resp BP Pulse Ox 98.7 F 116 H 22 136/78 98 09/22/16 11:22 09/22/16 11:22 09/22/16 11:22 09/22/16 11:22 09/22/16 11:22 Vital Signs - 24 hr 09/22/16 09/22/16 09/22/16 19:12 19:19 19:27 Temperature Pulse Rate [ Left Radial] Pulse Rate [ 99 H 101 H Throughout] Respiratory Rate Respiratory 20 20 Rate [ Throughout] Blood Pressure Blood Pressure [Left Arm] O2 Sat by Pulse 100 Oximetry 09/22/16 09/22/16 09/22/16 19:29 20:17 21:00 Temperature 98.5 F Pulse Rate [ 74 Left Radial] Pulse Rate [ Throughout] Respiratory 18 18 Rate Respiratory Rate [ Throughout] Blood Pressure Blood Pressure 107/63 [Left Arm] O2 Sat by Pulse 100 99 Oximetry 09/22/16 09/23/16 09/23/16 22:00 04:00 07:00 Temperature 98.0 F 97.5 F L Pulse Rate [ 88 92 H Left Radial] Pulse Rate [ Throughout] Respiratory 20 18 18 Rate Respiratory Rate [ Throughout] Blood Pressure Blood Pressure 112/61 119/84 [Left Arm] O2 Sat by Pulse 97 99 Oximetry 09/23/16 09/23/16 09/23/16 08:47 08:48 08:58 Temperature Pulse Rate [ Left Radial] Pulse Rate [ 80 81 Throughout] Respiratory Rate Respiratory 16 16 Rate [ Throughout] Blood Pressure Blood Pressure [Left Arm] O2 Sat by Pulse 99 Oximetry 09/23/16 09/23/16 10:55 16:00 Temperature 97.3 F L Pulse Rate [ 101 H Left Radial] Pulse Rate [ Throughout] Respiratory 19 Rate Respiratory Rate [ Throughout] Blood Pressure 101/61 Blood Pressure 121/69 [Left Arm] O2 Sat by Pulse Oximetry General appearance: no acute distress, alert Eyes: non-icteric ENT: oropharynx moist Neck: supple Effort: normal Ascultation: Bilateral: rales (bases) Cardiovascular: regular rate and rhythm (no mrg) Gastrointestinal: normoactive bowel sounds, soft, non-tender, non-distended Integumentary: normal, other (+ subQ emphysema over anterior chest) Extremities: no cyanosis, no edema, pink and warm Musculoskeletal: no deformities normal mental status, non-focal exam, pupils equal and round, CN II-XII normal mood appropriate, affect normal Results - Laboratory Findings CBC and BMP: 09/23/16 07:09 09/23/16 07:09 PT/INR, D-dimer PT 12.6 Sec. (12.2-14.9) 09/22/16 11:40 INR 0.95 (0.87-1.13) 09/22/16 11:40 Abnormal lab findings: Abnormal Labs 09/23/16 09/23/16 07:09 07:09 WBC 11.2 H MCH 27 L Lymph % (Auto) 9.2 L Lymph # 1.0 L Seg Neutrophils % 89.0 H Seg Neutrophils # 10.0 H Potassium 5.3 H Carbon Dioxide 20 L BUN 28 H Creatinine 1.4 H Glucose 133 H - Diagnostic Findings Chest x-ray: report reviewed, image reviewed CT scan - chest: report reviewed, image reviewed Assessment and Plan Imp: 1. Pneumomediastinum, iatrogenic s/p recent bronchoscopy -> improving clinically ; there is no evidence of clinically or radiographically of tracheal or esophageal perforation 2. RA 3. 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 Chronic respiratory failure, hypoxia 5. CKD 6. Leukocytosis, probably prednisone/stress related Rec: 1. Clinically improved; can be discharged and f/u with Dr. Ng in 1-2 weeks 2. Has home O2 3. Cont. Prednisone same dose 4. Needs close f/u with rheumatology to optimize RA therapy in light of ILD Plan of care reviewed w/ patient, she understands/agrees Thanks kindly for the consult.
--- NOTE | 2016-09-24 14:20 | Discharge Summary ---
Providers - Providers Date of Admission: 09/22/16 16:54 Date of discharge: 09/24/16 Attending physician: MADDY ZABALA MD 09/22/16 16:59 Consult to Physician [CONS] Routine Consulting Provider: CALI AMOR Reason For Exam: pneumomediastinum Place consult to:: pulm Notified:: y Was contact made?: Yes If yes, spoke with:: DR CANTRELL Primary care physician: CONCRETE LAYER Hospitalization Condition: Stable Hospital course: his is a 45-year-old Afro-[place] female w pmh of HTN, RA, CKD stage 3 due to RA, ILD, Pulmonary fibrosis, Asthma, Oxygen dependent 75% of the time, on 2-3L by [place], presents to the emergency department from home with complaint of subcutaneous crepitus after being bilateral lung biopsies done on 09/17/16. Patient was admitted for Pneumomediastinum, Asthma, Interstitial lung disease/ pulmonary fibrosis, Stage III chronic kidney disease, Elevated liver enzyme, Leukocytes, Hypertension and Hyperlipidemia. She was treated with supplemental oxygen, aggressive nebulizer therapy, antihypertensive medication and antilipid agents. Patient cleared by Pulmonology. Patient clinically improved and stable for discharge. Patient was advised to follow up with her primary care. Disposition: - TO HOME OR SELFCARE Core Measure Documentation - Palliative Care Palliative Care/ Comfort Measures: Not Applicable - Core Measures Any of the following diagnoses?: none Exam - Constitutional Vitals: Temp Pulse Resp BP Pulse Ox 97.3 F L 101 H 19 121/69 99 09/23/16 16:00 09/23/16 16:00 09/23/16 16:00 09/23/16 16:00 09/23/16 08:47 Plan Follow up with: TINA CULP MD [Primary Care Provider] - 3-5 Days
[2016-09-29] MEDS ORDERED: ETANERCEPT 50 MG SQ SCH (10:00)
== END 2016-09-23 17:20 | disposition home or self-care (01) | DRG 200 ==
LOC: ED 11:16 → 3A 16:54
PROVIDERS: ADMIT Internal Medicine; ATTEND Internal Medicine
DX: J98.2 Interstitial emphysema (principal); J96.11 Chronic respiratory failure with hypoxia; I13.0 Hypertensive heart and chronic kidney disease with heart failure and stage 1 through stage 4 chronic kidney disease, or unspecified chronic kidney disease; J45.909 Unspecified asthma, uncomplicated; I50.9 Heart failure, unspecified; N18.3 Chronic kidney disease, stage 3 (moderate); M06.9 Rheumatoid arthritis, unspecified; E78.5 Hyperlipidemia, unspecified; Z98.891 History of uterine scar from previous surgery; Z83.3 Family history of diabetes mellitus; Z82.49 Family history of ischemic heart disease and other diseases of the circulatory system
CPT/HCPCS: 36415; 71020; 71250; 80048; 80053; 85007; 85025; 85610; 85730; 90732; 93005; 93010; 94640; 94760; J1650

== ENCOUNTER 2016-10-21 11:10 | Outpatient (CLI) | payer OTHER ==
--- NOTE | 2016-10-21 13:57 | Ultrasound Report ---
Limited abdominal ultrasound: Abnormal liver enzymes. The liver, pancreas, and gallbladder are echogenically unremarkable. The CBD diameter is 2.4 mm in diameter. The proximal abdominal aorta is 2.3 cm in the mid aorta is 2 cm. The right renal length is 7.7 cm. The kidney is echogenically dense but there is no evidence of renal mass, calculus, nor hydronephrosis. Impression: 1. No hepatic findings. 2. Small echogenic kidney consistent with medical renal disease.
== END 2016-10-21 11:11 | disposition home or self-care (01) ==
LOC: SPVWC 11:10
PROVIDERS: ATTEND Internal Medicine Rheumatology
DX: R94.5 Abnormal results of liver function studies (principal); I12.9 Hypertensive chronic kidney disease with stage 1 through stage 4 chronic kidney disease, or unspecified chronic kidney disease; N18.9 Chronic kidney disease, unspecified; J18.9 Pneumonia, unspecified organism; J45.909 Unspecified asthma, uncomplicated; M06.9 Rheumatoid arthritis, unspecified; E78.5 Hyperlipidemia, unspecified; Z79.899 Other long term (current) drug therapy
CPT/HCPCS: 76705

== ENCOUNTER 2016-10-29 13:34 | Outpatient (CLI) | payer OTHER ==
[2016-10-29] MEDS ORDERED: PROVENTIL IH ONE (13:49)
== END 2016-10-29 13:35 | disposition home or self-care (01) ==
LOC: PF 13:34
PROVIDERS: ATTEND Internal Medicine
DX: J84.10 Pulmonary fibrosis, unspecified (principal); M06.9 Rheumatoid arthritis, unspecified; I12.9 Hypertensive chronic kidney disease with stage 1 through stage 4 chronic kidney disease, or unspecified chronic kidney disease; N18.3 Chronic kidney disease, stage 3 (moderate); J45.909 Unspecified asthma, uncomplicated; E78.5 Hyperlipidemia, unspecified
CPT/HCPCS: 94060; 94640

== ENCOUNTER 2017-01-22 17:38 | Emergency (ER) | payer MEDICAID ==
[2017-01-22 19:20] LABS: Hematocrit 39.2 % (30.3-42.9); Mean Corpuscular HGB Conc 33 % (30-34); Mean Corpuscular Hemoglobin 31 pg (28-32); Mean Corpuscular Volume 95 fl (79-97); Platelet Count 242 K/mm3 (140-440); Red Blood Count 4.15 M/mm3 (3.65-5.03); Red Cell Distribution Width 17.2 % (13.2-15.2)
[2017-01-22 19:26] LABS: White Blood Count 22.2 K/mm3 (4.5-11.0)
[2017-01-22 19:32] LABS: Anion Gap 21 mmol/L; BUN/Creatinine Ratio 21; Blood Urea Nitrogen 21 mg/dL (7-17); Calcium 8.5 mg/dL (8.4-10.2); Carbon Dioxide 22 mmol/L (22-30); Chloride 102.1 mmol/L (98-107); Glucose 176 mg/dL (65-100); Sodium 141 mmol/L (137-145)
[2017-01-22 20:00] LABS: Cholesterol 315 mg/dL (50-199); HDL Cholesterol 82 mg/dL (40-59)
[2017-01-22 20:13] LABS: Triglycerides 982 mg/dL (2-149)
[2017-01-22 20:14] LABS: LDL Cholesterol,Direct TNR mg/dL (50-130)
[2017-01-22 20:55] LABS: Blastocytes % (Manual) 0 %
[2017-01-22 20:56] LABS: Anisocytosis 1+; Diff Status Complete; Platelet Estimate Consistent w Auto; Poikilocytosis Rare
[2017-01-23] MEDS ORDERED: LOVENOX SUB-Q ONE ×2 (02:13→03:09)
[2017-01-23] MEDS ORDERED: LOVENOX SUB-Q SCH (02:13)
[2017-01-23 05:55] VITALS: BP 123/91
--- NOTE | 2017-01-23 08:09 | XRay Report ---
Single view chest: Compared to 12/20/16. Next History: Shortness of breath. Findings: Normal cardiomediastinal silhouette the trachea is midline. Linear interstitial densities are identified bilaterally without significant interval change. Normal CP angles. Impression: No significant interval change.
== END 2017-01-23 03:50 | disposition home or self-care (01) ==
LOC: ED 17:38
DX: M25.471 Effusion, right ankle (principal); R06.02 Shortness of breath
CPT/HCPCS: 36415; 71020; 80048; 80061; 84484; 85007; 85025; 93005; 93010; 96372; 99284; J1650

== ENCOUNTER 2017-02-04 12:10 | Outpatient (CLI) | payer MEDICAID ==
--- NOTE | 2017-02-05 16:55 | Vascular Lab Report ---
Right Lower Extremity Venous Duplex Study: Reason for Exam: Swelling of the right lower extremity. Comments on the Right: All veins visualized are freely compressible without evidence of internal echogenicity. Flow is spontaneous and phasic throughout. No evidence of acute or chronic thrombus is seen in any of the vessels visualized. Comments on the Left: A limited duplex study was done of the proximal veins of the left lower extremity. All veins visualized are freely compressible without evidence of internal echogenicity. Flow is spontaneous and phasic throughout. No evidence of acute or chronic thrombus is seen in any of the vessels visualized. Impression: No evidence of acute or chronic deep venous thrombosis in the right lower extremity.
== END 2017-02-04 12:11 | disposition home or self-care (01) ==
LOC: VAS 12:10
PROVIDERS: ATTEND Emergency Medicine
DX: M79.89 Other specified soft tissue disorders (principal)

== ENCOUNTER 2018-05-06 12:51 | Outpatient (CLI) | payer OTHER ==
--- NOTE | 2018-05-06 16:20 | Mammography Report ---
BONE DEXA:05/06/18 12:51:00 CLINICAL: Postmenopausal. No comparison. TECHNIQUE: Two site bone DEXA performed on an Hologic scanner. FINDINGS: The average BMD of the lumbar spine L1-L4 is 0.986g/cm squared with a T-score of -1.5 and a Z-score of 90.9. The average BMD of the left hip is 0.768g/cm squared with a T-score of -1.7 and a Z-score of -1.6. The left from a neck BMD is 0.599g/cm squared with a T score of -2.5 and a Z score of -2.2 IMPRESSION: 1. WHO classification: Osteopenia with increased fracture risk based on lumbar spine measurements. 2. WHO classification: Osteoporosis with high fracture risk based on left femoral neck measurements. RECOMMENDATION: Clinical correlation and routine screening. DEFINITIONS: BMD = Bone Mineral Density T-score = BMD related to mean peak bone mass of young adult (mean expressed in Standard Deviation) Z-score = Age matched BMD expressed in SD World Health Organization (WHO) Diagnostic Criteria Normal T-score > -1 SD Osteopenia T-score between -1 and -2.4 SD Osteoporosis T-score -2.5 SD or below NOTE: BMD is not the only risk factor for fracture. One should also consider factors such as the patient's age, risk of falling, previous osteoporotic fracture, family history of osteoporotic fractures, current smoker, and low body weight. Z-scores are not calculated if >80 years of age.
--- NOTE | 2018-05-07 14:33 | Mammography Report ---
BILATERAL DIGITAL SCREENING MAMMOGRAM with CAD: 05/06/18 12:51:00 CLINICAL: Routine screening. COMPARISON:None available. FINDINGS: The breasts are heterogeneously dense, which may obscure small masses. No mass, architectural distortion or suspicious calcifications. IMPRESSION: No mammographic evidence of malignancy. BI-RADS CATEGORY: 1 - - Negative RECOMMENDATION: Routine mammographic screening in one year. COMMENT: Patient follow-up letters are generated by our [employer] application.
== END 2018-05-06 12:52 | disposition home or self-care (01) ==
LOC: SPVWC 12:51
PROVIDERS: ATTEND Family Medicine
DX: Z12.31 Encounter for screening mammogram for malignant neoplasm of breast (principal); M81.0 Age-related osteoporosis without current pathological fracture; Z78.0 Asymptomatic menopausal state; E78.00 Pure hypercholesterolemia, unspecified; J45.909 Unspecified asthma, uncomplicated; K21.9 Gastro-esophageal reflux disease without esophagitis; M19.90 Unspecified osteoarthritis, unspecified site; I12.9 Hypertensive chronic kidney disease with stage 1 through stage 4 chronic kidney disease, or unspecified chronic kidney disease; N18.9 Chronic kidney disease, unspecified
CPT/HCPCS: 77067; 77080